=== PATIENT | female | born 1965 | race Caucasian/White ===

== ENCOUNTER → 2020-09-06 | Outpatient (CLI) | payer OTHER ==
[~2020-09-06] MED LIST: AUGMENTIN PO; BENADRYL25 M2 PO; GABAPENTIN600 MG PO; KETOROLAC10 MG PO; NAPROSYN500 MG PO; NEXIUM40 MG PO; NO ROUTINE MEDS; NO RX MEDICATIONS; TYLENOL 325MG325 MG PO; ZOFRAN4 M1 PO
== END ==
LOC: COL.RAD 07:19
DX: M19.071 Primary osteoarthritis, right ankle and foot (principal)